=== PATIENT | female | born 1975 | race Caucasian/White ===

== ENCOUNTER 2016-07-25 10:14 | Emergency (ER) | payer SELFPAY ==
[2016-07-25 10:35] VITALS: BP 138/89; PULSE 87; TEMP 99.5
[2016-07-25 10:45] LABS: AUTOMATED BASOPHIL 0.6 % (0-2); AUTOMATED LYMPH 33.4 % (17-44); AUTOMATED MONOCYTE 5.3 % (3-10); AUTOMATED NEUTROPHIL 59.7 % (45-76); MPV 7.5 fL (7.4-10.4)
[2016-07-25 10:58] LABS: BLOOD UREA NITROGEN 16 MG/DL (7-17); CALCIUM 9.5 MG/DL (8.4-10.2); CALCULATED OSMOLALITY 270 MOs/Kg (270-290); CHLORIDE 102 mEq/L (98-107); CPK TOTAL WITH POSSIBLE MB 152 IU/L (30-134); GLUCOSE 103 MG/DL (70-99); SODIUM LEVEL 140 mEq/L (137-146); TOTAL PROTEIN 7.9 G/DL (6.3-8.2)
[2016-07-25 11:13] LABS: PARTIAL THROMB. TIME 26.2 SEC (22-35)
[2016-07-25 11:28] LABS: CPKMB 0.9 ng/mL (0-4.5)
== END 2016-07-25 14:10 | disposition left against medical advice (07) ==
LOC: ED 10:14
DX: R07.9 Chest pain, unspecified (principal); Z53.21 Procedure and treatment not carried out due to patient leaving prior to being seen by health care provider
CPT/HCPCS: 80053; 82550; 82553; 83880; 84484; 85025; 85610; 85730; 93005; 99281